=== PATIENT | male | born 1970 | race Caucasian/White ===

== ENCOUNTER 2017-06-11 09:40 | Emergency (ER) | payer OTHER ==
[2017-06-11 09:58] VITALS: RESP 18; TEMP 97.9
--- NOTE | 2017-06-11 10:03 | EDPHY ---
H & P Stated Complaint: c/o Rt testicule pain with lump x 4 days- denies trauma Time Seen by Provider: 06/11/17 09:53 HPI/ROS: Chief Complaint: Scrotal pain HPI: 47-year-old male has been having worsening pain and tenderness in his right scrotum for the last 4 days. Patient states he was in in turns for race little over a week ago. At that point had some right thigh pain but did not have any particular abdominal or scrotal pain. Four days ago notice some increasing swelling high up in his right scrotum with tenderness. He states that is improved after a wear supportive underwear but has worsening pain when he has unsupported. No fevers or chills. No urethral discharge. No urgency or frequency. Does have a history of diabetes which is well-controlled. No nausea or vomiting. No abdominal pain. No constipation. ROS: 10 point Review of Systems is negative except as noted in the HPI. PMH: Diabetes Social History: No smoking, no alcohol, no recreational drug use Family History: non-contributory Physical Exam: Gen: Awake, Alert, No Distress HEENT: Nose: no rhinorrhea Eyes: PERRLA, EOMI Mouth: Moist mucosa Abd: Soft, non-tender, no guarding Genital: Circumcised male. Testes are distended. He has no testicular tenderness bilaterally. There is no scrotal erythema or tenderness. There is a palpable mass high up in his right scrotum which is tender to the touch. Is not warm. There is no fluctuance. Here is no inguinal lymphadenopathy. There are no rashes or lesions. Ext: no edema, non-tender Skin: no rash Neuro: CN II-XII intact, Sensation grossly intact, Strength 5/5 in bilateral upper and lower extremities - Personal History Current Tetanus Diphtheria and Acellular Pertussis (TDAP): Yes - Medical/Surgical History Hx Asthma: No Hx Chronic Respiratory Disease: No Hx Diabetes: Yes Hx Cardiac Disease: No Hx Renal Disease: No Hx Cirrhosis: No Hx Alcoholism: No Hx HIV/AIDS: No Hx Splenectomy or Spleen Trauma: No Other PMH: Type II diabetes, high cholesterol - Social History Smoking Status: Former smoker Constitutional: Initial Vital Signs Temperature (C) 36.6 C 06/11/17 09:55 Heart Rate 68 06/11/17 09:55 Respiratory Rate 18 06/11/17 09:55 Blood Pressure 120/89 H 06/11/17 09:55 O2 Sat (%) 97 06/11/17 09:55 O2 Delivery Mode Room Air Allergies/Adverse Reactions: Penicillins Allergy (Verified 07/11/16 15:27) Sulfa (Sulfonamide Antibiotics) Allergy (Verified 07/11/16 15:27) Home Medications: Medication Instructions Recorded Atorvastatin Calcium 11/09/15 Insulin Regular, Human 11/09/15 Lisinopril 11/09/15 Ciprofloxacin [Cipro] 500 mg PO BID #20 tab 06/11/17 Medical Decision Making - Diagnostics Imaging Results: Imaging Impressions Testicular Ultrasound 06/11/17 10:01 Impression: 1. Small bilateral complex hydroceles. 2. No definite epididymitis or orchitis. 3. No testicular torsion or intratesticular masses. Findings and recommendations discussed with Emergency Department physician, Dr. Anastacio Cantrell at 1100 hours on June 11, 2017. Final report concurs with initial preliminary interpretation. Abdomen Ultrasound 06/11/17 11:12 Impression: 1. Inflamed enlarged right spermatic cord encasing a nonspecific 8 x 8 mm nodular lesion. 2. Recommend CT pelvis to exclude a right inguinal hernia. Findings and recommendations discussed with Emergency Department physician, Dr. Anastacio Cantrell at 1200 hours on June 11, 2017. Final report concurs with initial preliminary interpretation. Pelvis CT 06/11/17 12:00 Impression: Inflammation/infection of the right seminal vesicle extending to the right spermatic cord. Findings discussed with Dr. Anastacio Cantrell on June 11, 2017 at 1326 hours. Imaging: Discussed imaging studies w/ orthopedically impaired teacher Radiologist ED Course/Re-evaluation: Ultrasounds inconclusive but does show some inflammation and ends scrotal swelling along the spermatic cord. Dr. Higuera is recommending CT scanning at this time. IV is being placed. Bloods ordered. CT scan ordered. I have discussed with the patient and he is comfortable with this plan. - Data Points Laboratory Results: Laboratory Results 06/11/17 12:00 06/11/17 12:00 06/11/17 06/11/17 12:00 12:00 WBC 8.20 10^3/uL 10^3/uL (3.80-9.50) RBC 4.51 10^6/uL 10^6/uL (4.40-6.38) Hgb 14.2 g/dL g/dL (13.7-17.5) Hct 42.2 % % (40.0-51.0) MCV 93.6 fL fL (81.5-99.8) MCH 31.5 pg pg (27.9-34.1) MCHC 33.6 g/dL g/dL (32.4-36.7) RDW 12.9 % % (11.5-15.2) Plt Count 253 10^3/uL 10^3/uL (150-400) MPV 9.5 fL fL (8.7-11.7) Neut % (Auto) 72.3 % % (39.3-74.2) Lymph % (Auto) 19.4 % % (15.0-45.0) [place] % (Auto) 7.1 % % (4.5-13.0) Eos % (Auto) 0.6 % % (0.6-7.6) Baso % (Auto) 0.4 % % (0.3-1.7) Nucleat RBC Rel Count 0.0 % % (0.0-0.2) Absolute Neuts (auto) 5.93 10^3/uL 10^3/uL (1.70-6.50) Absolute Lymphs (auto) 1.59 10^3/uL 10^3/uL (1.00-3.00) Absolute Monos (auto) 0.58 10^3/uL 10^3/uL (0.30-0.80) Absolute Eos (auto) 0.05 10^3/uL 10^3/uL (0.03-0.40) Absolute Basos (auto) 0.03 10^3/uL 10^3/uL (0.02-0.10) Absolute Nucleated RBC 0.00 10^3/uL 10^3/uL (0-0.01) Immature Gran % 0.2 % % (0.0-1.1) Immature Gran # 0.02 10^3/uL 10^3/uL (0.00-0.10) Sodium 143 mEq/L mEq/L (134-144) Potassium 4.7 mEq/L mEq/L (3.5-5.2) Chloride 106 mEq/L mEq/L (97-110) Carbon Dioxide 26 mEq/l mEq/l (22-31) Anion Gap 11 mEq/L mEq/L (8-16) BUN 15 mg/dL mg/dL (7-23) Creatinine 0.7 mg/dL mg/dL (0.7-1.3) Estimated GFR > 60 Glucose 75 mg/dL mg/dL (70-100) Calcium 9.4 mg/dL mg/dL (8.5-10.4) Departure - Departure Disposition: Home, Routine, Self-Care Clinical Impression: Spermatic cord inflammation Condition: Good Instructions: Epididymitis (ED), Scrotal Pain (ED) Additional Instructions: Take her full course of antibiotics. Follow up with her primary care physician on for recheck. Return to the emergency department for increasing pain, fevers, chills, nausea, vomiting, or any other concerns. Referrals: Shimon Walker MD [Primary Care Provider] - As per Instructions Prescriptions: Ciprofloxacin [Cipro] 500 mg PO BID #20 tab
[2017-06-11 12:23] LABS: PLATELET COUNT 253 10^3/uL (150-400)
[2017-06-11] MEDS ORDERED: IOPAMIDOL (ISOVUE-300) 100 ML BTL ONE (12:50)
[2017-06-11 13:56] VITALS: BP 142/62; PULSE 74; O2SAT 96
== END 2017-06-11 13:55 | disposition home or self-care (01) ==
LOC: CED 09:40
DX: N50.89 Other specified disorders of the male genital organs (principal); E11.9 Type 2 diabetes mellitus without complications; Z79.4 Long term (current) use of insulin; Z87.891 Personal history of nicotine dependence
CPT/HCPCS: 72193-PO; 76705-PO; 76870-PO; 80048-PO; 85025-PO; Q9967

== ENCOUNTER → 2017-06-11 | Emergency (ER) | payer OTHER | END | disposition left against medical advice (07) | LOC: CED 08:11 | DX: Z53.21 Procedure and treatment not carried out due to patient leaving prior to being seen by health care provider (principal) ==